=== PATIENT | female | born 1975 | race Caucasian/White ===

== ENCOUNTER 2016-10-30 13:55 | Emergency (ER) | payer SELFPAY ==
[~2016-10-30] VITALS: Ht 160 cm; Wt 75.0 kg
[2016-10-30 13:57] VITALS: BP 130/84; PULSE 84; RESP 16; TEMP 97.7; O2SAT 99
[2016-10-30] MEDS ORDERED: BENA25TA3 PO (14:05)
[2016-10-30] MEDS ORDERED: ALLE60TA PO (14:05)
[2016-10-30] MEDS ORDERED: KETO0.02 EACH EYE (14:08)
[2016-10-30] MEDS ORDERED: POLY10O EACH EYE (14:13)
--- NOTE | 2016-10-30 14:18 | PD ---
HPI Chief Complaint: Eye Problems/Injury Time Seen by Provider: 14:05 Travel History International Travel<30 days: No Contact w/Intl Traveler<30days: No Traveled to known affect area: No History of Present Illness HPI This is a 41-year-old female presents for evaluation of bilateral eye redness, itching, matting and irritation. Symptoms have been ongoing in a mild fashion for the past few months. She does note a history of seasonal allergies. She reports that she was treated for sinus infection a few months ago at a different emergency room. Over the Past 4-5 days she has had worsening redness and irritation and itching and matting of both eyes. This prompted evaluation today. No photophobia or blurred vision. She does work glasses but not contacts. She is using [id number] oral antihistamines and ophthalmic antihistamines but symptoms seem to be worsening. She does have an appointment with an panel instrument repairer tomorrow. She has no other complaints at this time. PFSH Past Medical History Diabetes: No Genitourinary: Yes (HX UTI) Immune Disorder: No ?: Not LMP: 10/16/16 : 1 Para: 1 Past Surgical History Tonsillectomy: Yes (T & A) Social History Alcohol Use: No Tobacco Use: Yes (one pack per day) Substance Use: No (HX COCAINE, OPIATES) Allergies-Medications (Allergen,Severity, Reaction): Coded Allergies: Sulfa (Unverified Allergy, Intermediate, Hives, 10/30/16) Doxycycline (Unverified Adverse Reaction, Intermediate, Nausea/Vomiting, ) Erythromycin (Unverified Adverse Reaction, Intermediate, Nausea/Vomiting, 10/30/16) Reported Meds & Prescriptions Reported Meds & Active Scripts Active Polytrim Opth Drops (Polymyxin/Trimethoprim Sulfate) 10,000-0.1 Unit/Ml-% Soln 1 Drop EACH EYE Q6HR 10 Days Reported ZyrTEC Itchy Eye Opth Drops (Ketotifen Opth Drops) 0.025% Drops 1 Drop EACH EYE BID PRN Karla Allergy (Fexofenadine HCl) 60 Mg Tab 60 Mg PO BID Benadryl Allergy (Diphenhydramine HCl) 25 Mg Tab 25 Mg PO Q6H PRN Review of Systems General / Constitutional: No: Fever Eyes: Positive: Redness, Tearing, Other (irritation, itching), No: Blurred Vision, Foreign Body Sensation HENT: Positive: Congestion Physical Exam Narrative GENERAL: Well-developed well-nourished female in no acute distress SKIN: Warm and dry. HEAD: Atraumatic. Normocephalic. EYES: Pupils equal and round reactive to light extraocular muscles are intact. Bilaterally there is conjunctival injection, slight chemosis. Wood's lamp examination reveals no area of increased corneal uptake. Slit-lamp examination is normal with no hyphema, hypopyon, dendritic lesions, cell or flare in the anterior chamber. There is some dryness and flaking of the skin of the right upper eyelid. There is no periorbital edema or erythema. No proptosis. ENT: No nasal bleeding or discharge. Mucous membranes pink and moist. NECK: Trachea midline. No JVD. Data Data Last Documented VS Vital Signs Date Time Temp Pulse Resp B/P Pulse Ox O2 Delivery O2 Flow Rate FiO2 10/30/16 13:57 97.7 84 16 130/84 99 Room Air [facility] Medical Decision Making Medical Screen Exam Complete: Yes Emergency Medical Condition: Yes Medical Record Reviewed: Yes Differential Diagnosis Conjunctivitisviral versus allergic versus bacterial versus chemical, iritis, acute glaucoma, periorbital cellulitis, orbital cellulitis, keratitis Narrative Course 41-year-old female who suffered from seasonal allergy symptoms for the past few months presents now with 4 days of worsening redness, itching, irritation and matting of the eyelids examination reveals bilateral conjunctivitis. Given the chronicity of symptoms likely there is some underlying allergic conjunctivitis however symptoms seem to be worsening despite the use of topical antihistamines as well as oral antihistamines. Therefore treatment will be attempted with topical antibiotic drops, Polytrim. She does have an appointment with an panel instrument repairer tomorrow for reevaluation. She is stable for discharge. Diagnosis Primary Impression: Conjunctivitis Qualified Code: H10.33 - Acute conjunctivitis of both eyes, unspecified acute conjunctivitis type Departure Forms: Tests/Procedures, Work Release Enter return to work date: Nov 01, 2016 Additional Instructions: Medication as prescribed. Follow-up with your panel instrument repairer as scheduled. Return for any emergent medical conditions. Med/Other Pt SpecificInfo: Prescription(s) given Scripts Polymyxin B-Trimethoprim Opth Drops (Polytrim Opth Drops)10,000-0.1 Unit/Ml-% Soln1 Drop EACH EYE Q6HR 10 Days Ref 0 Prov:Francisco Andrew MD 10/30/16 Disposition: 01 DISCHARGE HOME Condition: Stable Som Seymour Oct 30, 2016 14:18
== END 2016-10-30 14:42 | disposition home or self-care (01) ==
LOC: NEPB 13:55
DX: H10.33 Unspecified acute conjunctivitis, bilateral (principal); F17.210 Nicotine dependence, cigarettes, uncomplicated
CPT/HCPCS: 99282